=== PATIENT | male | born 1985 | race Caucasian/White ===

== ENCOUNTER 2019-05-02 08:50 | Day surgery (SDC) | payer OTHER ==
--- NOTE | 2019-05-01 16:47 | HP ---
PREOPERATIVE HISTORY AND PHYSICAL: DATE OF ADMISSION/SURGERY: 05/02/19 DATE OF OFFICE VISIT: 05/01/19 ATTENDING SURGEON: Cinda Hernández MD.* (DICTATED BY MANUEL LO) PROCEDURE: Right knee arthroscopy, possible meniscus repair. CHIEF COMPLAINT: Right knee. HISTORY OF PRESENT ILLNESS: Keo is a 33-year-old male who presents to the clinic for right knee pain due to a lateral meniscus tear at the posterior root. He has failed conservative measures and therefore agreed to undergo a right knee arthroscopy and possible meniscus repair with Dr. Hernández on 05/02/19. PAST MEDICAL HISTORY: Asthma and ADHD. PAST SURGICAL HISTORY: Denies prior surgery. MEDICATIONS: 1. Adderall 20 mg 1 by mouth every day. The patient denies taking currently. 2. Albuterol 2.5 mg/3 mL, 0.083% one dose via nebulizer every 4 hours as needed. ALLERGIES: No known drug allergies. FAMILY HISTORY: Denies pertinent family history. SOCIAL HISTORY: He denies tobacco or alcohol use. He is an [employer] student. REVIEW OF SYSTEMS: A 14-point review of systems was reviewed with the patient. Positive for current complaint, otherwise negative. Denies fever, chills, chest pain, shortness of breath, history of bleeding disorder, history of DVT or PE. PHYSICAL EXAMINATION GENERAL: A 33-year-old well-developed, well-nourished male, in no acute distress. VITAL SIGNS: Height 74, weight 224, pulse 60, blood pressure 120/70, respiratory rate 18, BMI 28.8. HEENT: Normocephalic, atraumatic. PERRLA. Throat: Clear. NECK: Supple. PULMONARY: Lungs clear to auscultation bilaterally. No wheezing, rhonchi, or rales. CARDIO: Regular rate and rhythm. S1, S2. No murmurs, gallops, or rubs. No edema. ABDOMEN: Positive bowel sounds, soft, nontender. NEURO: Alert and oriented x3. Cranial nerves grossly intact. MUSCULOSKELETAL: Right lower extremity, skin is intact. No warmth or erythema. Range of motion 0 to 130. Pain with deep flexion. Positive Geetha. Tender over the lateral joint line. Stable to varus and valgus stress. Stable Miladis. Negative posterior drawer. Calf soft, nontender. +2 DP pulse. Sensation intact to light touch distally. DIAGNOSTIC STUDIES: MRI revealed lateral meniscus tear of the posterior root with plica and tendinopathy. IMPRESSION: Right knee lateral meniscus tear. PLAN: The patient is scheduled to undergo right knee arthroscopy with possible meniscus repair with Dr. Hernández on 05/02/19. He will follow up in 10 to 14 days postop for followup and suture removal. Percocet will be used for postoperative pain management. MANUEL LO [id number]/[facility] #: [id number] [facility]India
[~2019-05-02 08:50] MED LIST: Buffered Lidocaine 1% SYRIN* 1 ML/SYRINGE INTRADERM ONE; Lactated Ringers 1000 ML Bag* 1,000 ML IV SCH
[2019-05-02] MEDS ORDERED: fentaNYL* 50 MCG/ML 2 ML VIAL (100 MCG VIAL) ONE (08:56)
[2019-05-02] MEDS ORDERED: Midazolam* 1 MG/ML 2 ML VIAL (2 MG) ONE (08:56)
[2019-05-02] MEDS ORDERED: ceFAZolin 2 GM PREMIX in ORs 2 GM/50 ML BAG ONE (09:10)
[2019-05-02] MEDS ORDERED: Buffered Lidocaine 1% SYRIN* 1 ML/SYRINGE INTRADERM ONE (09:28)
[2019-05-02] MEDS ORDERED: oxyCODONE TAB* 5 MG TAB PO PRN (09:49)
[2019-05-02] MEDS ORDERED: Naloxone* 0.4 MG/ML 1 ML VIAL IV PRN (09:49)
[2019-05-02] MEDS ORDERED: HYDROmorphone INJ1* 1 MG/ML SYRINGE IV PRN (09:49)
[2019-05-02] MEDS ORDERED: Lidocaine 2% w EPI 1:100,000* 20 ML MDV VIAL ONE (10:20)
[2019-05-02] MEDS ORDERED: Ropivacaine 0.2% * 2 MG/ML VIAL ONE (10:20)
[2019-05-02] MEDS ORDERED: Lidocaine 1% w EPI 1:200,000* SDV 30 ML VIAL ONE ×2 (10:21→10:22)
[2019-05-02] MEDS ORDERED: Propofol* 10 MG/ML 20 ML BTL ONE (10:44)
[2019-05-02] MEDS ORDERED: Lidocaine 2% PF* 10 ML AMP ONE (10:44)
[2019-05-02] MEDS ORDERED: Ondansetron INJ* 2 MG/ML VIAL ONE (10:44)
[2019-05-02] MEDS ORDERED: Dexamethasone IV* 4 MG/ML 1 ML (4 MG) ONE (10:44)
[2019-05-02 13:22] VITALS: BP 122/66
--- NOTE | 2019-05-09 10:13 | OP ---
DATE OF OPERATION: 05/02/19 - [facility] DATE OF : 89 SURGEON: Cinda Hernández MD NATURAL GAS INSPECTOR: None available. PRE-OP DIAGNOSES: Right knee possible lateral meniscus tearing, chondrosis of the medial femoral condyle. POST-OP DIAGNOSES: Right knee possible lateral meniscus tearing, chondrosis of the medial femoral condyle. OPERATIVE PROCEDURE: Right knee arthroscopy with synovectomy, lysis of adhesion and a chondroplasty of the medial femoral condyle. COMPLICATIONS: None. ESTIMATED BLOOD LOSS: Minimal. INDICATIONS: Keo Michaels is a 33-year-old male who has had a previous partial PCL injury. He has persistent catching and locking symptoms. There is concern for possible meniscus tear. He had a mechanical symptom that was refractory to conservative management. He has elected to proceed with surgical treatment. Risks, and benefits were discussed at length including, but not limited to bleeding, infection, damage to nerves, vessels, surrounding structures, wound nonhealing, persistent pain, need for surgery, scarring, stiffness, incomplete relief of symptoms, and risk of anesthesia. DESCRIPTION OF PROCEDURE: The patient was greeted in the preoperative area by the attending surgeon. The correct extremity was marked and consent was confirmed. The patient was brought back to the operating suite, placed in a supine position on the operating table and underwent general anesthesia and LMA intubation, after which he was appropriately positioned on the bed. Lateral post was used to position. An unsterile tourniquet was placed high on the proximal thigh. The leg was then prepped and draped in usual sterile fashion using chlorhexidine soap, scrub, and alcohol wipe, and a final prep of ChloraPrep. After appropriate surgical pause indicating side, site, procedure, and administration of antibiotics, the knee was intra-articularly injected with 1% lidocaine with epi. The anterolateral portal was made sharply with a #11 blade. The scope was introduced into the joint. There was abundant synovitis and large plicas that were banded tissue coming across the knee. The anteromedial portal was made in an outside fashion. Shaver was used to debride back the thick bands of tissue, it was evidenced where it was rubbing against the medial femoral condyle as well as laterally. The medial compartment was examined. There was an area of borderline grade 1 to 2 changes on the weightbearing zone. The medial tib plateau had grade 0 changes and medial meniscus was intact and probed carefully. ACL and PCL were intact. The lateral compartment was examined, there were grade 0 to 1 changes. The lateral compartment and the meniscus was evaluated, but there were no unstable flaps. After this was evaluated, the knee was stayed in full extension and a synovectomy was done about the patella medially and laterally, the large plicas were removed and the gutters were then evaluated and there is no loose debris. Final images were obtained. The wounds were copiously irrigated with sterile saline. The portals were closed with 3-0 nylon. The wounds were copiously irrigated. The portals were injected with 0.2% Ropivacaine as well the joint intra- articularly. Sterile dressings were applied with Cryo/Cuff. He was awoken from anesthesia and transferred to the PACU in stable condition. POSTOPERATIVE PLAN: He will be weightbearing as tolerated. Range of motion as tolerated. He will start the therapy before he sees me back in 10 to 14 days. DVT prophylaxis was considered but deferred due to no previous personal or family history. I will see the patient back in 10 to 14 days. [id number]/[facility] #: [id number] [facility]WORKIndia
== END 2019-05-02 13:24 | disposition home or self-care (01) ==
LOC: OR 08:50
PROVIDERS: ATTEND Orthopaedic Surgery
DX: M65.861 Other synovitis and tenosynovitis, right lower leg (principal); M67.51 Plica syndrome, right knee; M23.8X1 Other internal derangements of right knee; J45.909 Unspecified asthma, uncomplicated; F41.9 Anxiety disorder, unspecified
CPT/HCPCS: J0690; J1100; J2001; J2250; J2405; J2704; J2795; J3010